=== PATIENT | female | born 1990 | race Hispanic/Latino ===

== ENCOUNTER 2018-12-21 08:33 | Emergency (ER) | payer BC ==
[~2018-12-21] VITALS: Ht 149.9 cm; Wt 86.2 kg
[~2018-12-21 08:33] MED LIST: IBUPROFEN600 MG PO; NORCO 10-325 T1 EACH PO
--- OUTSIDE RECORDS SUMMARY | 2018-12-21 08:37 | XMS REPORT | Clinical Summary ---
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 09/20/2018 benzonatate (TESSALON Take 1 20 capsule 0 PERLES) 100 MG capsule capsule (100 9 mg total) by mouth 3 (three) times a day as needed for cough for up to 7 days. Active Problems Problem Noted Date Obesity (BMI 35.0-39.9 without comorbidity) 11/22/2017 Encounters Care Team Description Date Type Specialty Soraya Fernández MD evit 09/12/2018 E-Visit Family Medicine Bel Holloway MD Screening-pulmonary TB (Primary Dx); Obesity (BMI 35.0-39.9 without comorbidity) 05/24/2018 Office Visit Internal Medicine after 12/20/2017 Immunizations Name Dates Previously Given Next Due Td 02/28/2018 Family History Medical History Relation Name Comments No Known Problems Brother Cholelithiasis Father Giorgi Her Diabetes Father Giorgi Her Urolithiasis Father Giorgi Her Hypertension Maternal Grandmother No Known Problems Mother No Known Problems Sister Relation Name Status Comments Brother Alive Father Giorgi Her Alive Maternal Grandmother Alive Mother Alive Sister Alive Social History Date Tobacco Use Types Packs/Day Years Used Never Smoker Smokeless Tobacco: Never Used Comments: Never Alcohol Use Drinks/Week oz/Week Comments No Sex Assigned at Date Recorded Female 06/30/2018 8:56 PM [employer] Industry Job Start Date Occupation Not on file Not on file Not on file Travel End Travel History Travel Start No recent travel history available. Last Filed Vital Signs Time Taken Vital Sign Reading 05/24/2018 9:48 AM [employer] Blood Pressure 107/76 05/24/2018 9:48 AM [employer] Pulse 71 05/24/2018 9:48 AM [employer] Temperature 36.8 C (98.2 F) - Respiratory Rate - 05/24/2018 9:48 AM [employer] Oxygen Saturation 99% - Inhaled Oxygen - Concentration 05/24/2018 9:48 AM [employer] Weight 87.5 kg (193 lb) 05/24/2018 9:48 AM [employer] Height 149.9 cm (4' 11") 05/24/2018 9:48 AM [employer] TE[employer] Body Mass Index 38.98 Plan of Treatment Health Maintenance Due Date Last Done Comments INFLUENZA VACCINE 01/05/2019 02/28/2018 Results Not on fileafter 12/20/2017 Insurance Type Payer Benefit Subscriber ID Effective Phone Address Plan / Dates Group PPO BCBS BCBS xxxxxxxxxxxx [id number] CHOICE resent PPO/[employer] PPO Advance Directives Patient has advance care planning documents on file. For more information, ronn maravilla contact: Fernando Jansen [address] [place] [address]
--- NOTE | 2018-12-21 08:55 | NUR ---
type and cross #[id number]
[2018-12-21 09:17] LABS: BILIRUBIN,URINE NEGATIVE (NEGATIVE); CLARITY,URINE CLEAR (CLEAR); COLOR,URINE YELLOW (YELLOW); KETONES,URINE NEGATIVE (NEGATIVE); LEUKOCYTE ESTERASE ,URINE NEGATIVE (NEGATIVE); NITRITE,URINE NEGATIVE (NEGATIVE); PROTEIN,URINE DIPSTICK NEGATIVE (NEGATIVE); URINE UROBILINOGEN 0.2 mg/dL (0.2 - 1)
[2018-12-21 09:18] LABS: BASOPHILS % 0.3 % (0.0-1.0); EOSINOPHILS # (AUTO) 0.3 (0.0-0.4); EOSINOPHILS % 4.6 % (0.0-6.0); HEMATOCRIT 40.4 % (34.2-44.1); HEMOGLOBIN 13.9 g/dL (12.0-16.0); LYMPHOCYTES # (AUTO) 1.6 (1.0-3.2); LYMPHOCYTES % 25.8 % (18.0-39.1); MEAN CORPUSCULAR HEMOGLOBIN 29.3 pg (28-32); MEAN CORPUSCULAR HGB CONC 34.4 g/dL (31-35); MEAN CORPUSCULAR VOLUME 85.1 fL (81-99); MONOCYTES # (AUTO) 0.4 (0.2-0.8); MONOCYTES % 6.4 % (4.4-11.3); NEUTROPHILS # (AUTO) 3.9 (2.1-6.9); NEUTROPHILS % 62.6 % (38.7-80.0); PLATELET COUNT 279 x10e3/uL (140-360); RED BLOOD COUNT 4.75 x10e6/uL (3.6-5.1); RED CELL DISTRIBUTION WIDTH 13.1 % (11.7-14.4)
--- NOTE | 2018-12-21 09:25 | NUR ---
in and out cath urine on pt, pt tolerated well. urine clear and yellow, no signs of bleeding.
[2018-12-21 09:26] LABS: ANION GAP 12.7 mmol/L (8-16); BLOOD UREA NITROGEN 7 mg/dL (7-26); BUN/CREATININE RATIO 11 (6-25); CALCIUM 9.3 mg/dL (8.4-10.2); CARBON DIOXIDE 23 mmol/L (22-29); CHLORIDE 105 mmol/L (98-107); CREATININE, SERUM 0.62 mg/dL (0.57-1.11); EST GLOMERULAR FILTRATION RATE > 60 ML/MIN (60-); GLUCOSE 86 mg/dL (74-118); POTASSIUM 3.7 mmol/L (3.5-5.1); SODIUM 137 mmol/L (136-145)
[2018-12-21 09:28] LABS: PREGNANCY TEST, URINE POSITIVE (NEGATIVE)
[2018-12-21 09:29] LABS: BACTERIA,URINE MODERATE /HPF; EPITHELIAL CELLS,URINE MODERATE /LPF; WBC,URINE (MAN) 0-5 /HPF (0-5)
[2018-12-21 09:46] LABS: BILIRUBIN,URINE NEGATIVE (NEGATIVE); CLARITY,URINE CLEAR (CLEAR); COLOR,URINE YELLOW (YELLOW); KETONES,URINE NEGATIVE (NEGATIVE); LEUKOCYTE ESTERASE ,URINE NEGATIVE (NEGATIVE); NITRITE,URINE NEGATIVE (NEGATIVE); PROTEIN,URINE DIPSTICK NEGATIVE (NEGATIVE); URINE UROBILINOGEN 0.2 mg/dL (0.2 - 1)
[2018-12-21] MEDS ORDERED: SODIUM CHLORIDE 0.9% 1000ML 1,000 ML IV SCH (10:00)
[2018-12-21 10:05] LABS: BACTERIA,URINE FEW /HPF; EPITHELIAL CELLS,URINE MODERATE /LPF; WBC,URINE (MAN) 0-5 /HPF (0-5)
[2018-12-21 10:30] LABS: HCG,QUANTITATIVE 57150.68 mIU/mL (0-10)
[2018-12-21 10:48] VITALS: BP 121/84
--- NOTE | 2018-12-21 11:42 | Diagnostic Imaging Report ---
EXAM: US OB TRANSVAG 1ST TRI SINGLE DATE: 12/21/2018 9:00 AM INDICATION: Vaginal bleeding COMPARISON: None TECHNIQUE: Transvaginal sonographic images of the pelvis were obtained using bower scale and color doppler. Transvaginal imaging was medically necessary to better evaluate the fetus. G 2P1A 0 LMP 11/07/2018 Clinical gestational age: 6w2d FINDINGS: UTERUS: Size: 9.5 x 5.9 x 8.7 cm Mass: None Cervix: Normal GESTATIONAL SAC: Normal appearance of intrauterine gestational sac. Subchorionic hemorrhage is noted measuring 3.2 x 1.4 x 3.0 cm. Mean sac diameter: 27.2 mm, 7w5d. YOLK SAC: Visualized EMBRYO/FETUS: [place] rump length: 20.7 mm Estimated sonographic gestational age: 8w5d Cardiac activity: 168 bpm RIGHT OVARY: 3.5 x 1.9 x 2.5 cm No abnormal cysts or masses. LEFT OVARY: Not visualized due to overlying bowel. CUL-DE-SAC: No free fluid. IMPRESSION: Viable intrauterine . There is a subchorionic hemorrhage measuring 3.2 x 1.4 x 3.0 cm. Estimated sonographic age of 8w5d based on CRL.. Signed by: Dr. Mateo Reyez M.D. on 12/21/2018 11:39 AM
== END 2018-12-21 10:47 | disposition home or self-care (01) ==
LOC: ER 08:33
DX: O20.9 Hemorrhage in early pregnancy, unspecified (principal); O20.0 Threatened abortion; R30.0 Dysuria
CPT/HCPCS: 36415; 76817; 80048; 81001; 81025; 84702; 85025; 86850; 86900; 87086; 99283